=== PATIENT | female | born 1995 | race Caucasian/White ===

== ENCOUNTER → 2016-08-04 | Outpatient (CLI) | payer BC ==
[2016-08-04 20:39] LABS: ALT 18 U/L (9-52); AST 18 U/L (14-36); Alkaline Phosphatase 57 U/L (38-126); Anion Gap 11 mmol/L; Blood Urea Nitrogen 10 mg/dL (7-17); Calcium 9.2 mg/dL (8.4-10.2); Carbon Dioxide 23 mmol/L (22-30); Chloride 108 mmol/L (98-107); Cholesterol 110 mg/dL (<200); Glucose 118 mg/dL (74-99); HDL Cholesterol 46 mg/dL (40-60); Non-African American GFR(MDRD) >60 (>60 ml/min/1.73 sqM); Sodium 142 mmol/L (137-145); Total Bilirubin 0.4 mg/dL (0.2-1.3); Total Protein 6.5 g/dL (6.3-8.2); Triglycerides 111 mg/dL (<150)
[2016-08-04 20:43] LABS: CH 30.4; Luc % (Auto) 1; Neutrophils % (A) 61 %
[2016-08-04 20:47] LABS: Basophils % (A) 0 %; Eosinophils # (A) 0.1 k/uL (0-0.7); Eosinophils % (A) 1 %; HCT 38.5 % (34.0-46.0); HDW 2.25; HGB 12.7 gm/dL (11.4-16.0); Lymphocytes # (A) 2.9 k/uL (1.0-4.8); Lymphocytes % (A) 32 %; MCH 30.4 pg (25.0-35.0); MCHC 32.9 g/dL (31.0-37.0); MCV 92.4 fL (80.0-100.0); Mean Platelet Volume 8.6; Monocytes # (A) 0.4 k/uL (0-1.0); Monocytes % (A) 4 %; Neutrophils # (A) 5.5 k/uL (1.3-7.7); RBC 4.17 m/uL (3.80-5.40); RDW 12.3 % (11.5-15.5); WBC (Perox) 9.75
== END | disposition home or self-care (01) ==
LOC: MMGSC 14:44
PROVIDERS: ATTEND Family Medicine
DX: Z00.00 Encounter for general adult medical examination without abnormal findings (principal)
CPT/HCPCS: 36415; 80053; 80061; 84439; 84443; 85025

== ENCOUNTER 2020-05-25 17:19 | Outpatient (CLI) | payer BC ==
[2020-05-25 18:47] VITALS: BP 123/72; PULSE 73; RESP 18; TEMP 97.3
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
== END 2020-05-25 18:40 | disposition home or self-care (01) ==
LOC: FBPOP 17:19
PROVIDERS: ATTEND Obstetrics & Gynecology
DX: O99.891 Other specified diseases and conditions complicating pregnancy (principal); R52 Pain, unspecified; Z3A.30 30 weeks gestation of pregnancy
CPT/HCPCS: 59025; 82731; 99215

== ENCOUNTER 2020-06-18 16:45 | Outpatient (CLI) | payer BC ==
[2020-06-18 17:38] LABS: Amorphous Sediment,Urine Occasional /hpf; Appearance,Urine Cloudy (Clear); Bacteria,Urine Moderate /hpf; Bilirubin,Urine Negative (Negative); Blood,Urine Negative (Negative); Color,Urine Yellow; Glucose,Urine (UA) Negative (Negative); Ketones,Urine Negative (Negative); Leukocyte Esterase,Urine Moderate (Negative); Mucus,Urine Moderate /hpf; Nitrite,Urine Negative (Negative); PH, Urine 6.5 (5.0-8.0); Protein,Urine 1+ (Negative); RBC,Urine 2 /hpf (0-5); Squamous Epithelial Cell,Urine 3 /hpf (0-4); Urobilinogen,Urine <2.0 mg/dL (<2.0); WBC,Urine 50 /hpf (0-5)
[2020-06-18 18:04] VITALS: BP 112/77; PULSE 74; RESP 16; TEMP 97.1
--- NOTE | 2020-08-06 15:05 | P.MSEPDOC ---
Presenting Problems - Arrival Data Date of Arrival on Unit: 06/18/20 Time of Arrival on Unit: 16:45 Mode of Transport: Ambulatory - Complaint OB-Reason for Admission/Chief Complaint: Pain, Observation/Evaluation Comment: Cramping since Sunday Medical History - Information : 1 Para: 0 Term: 0 : 0 Abortions: Spontaneous or Elective: 0 Number of Living Children: 0 - Gestational Age Gestational Age by ALICIA (wks/days): 33 Weeks and 5 Days Review of Systems - Review of Systems Constitutional: No problems Breast: No problems ENT: No problems Cardiovascular: No problems Respiratory: No problems Gastrointestinal: No problems Genitourinary: No problems Musculoskeletal: No problems Neurological: No problems Skin: No problems Vital Signs - Temperature Temperature: 97.1 F Temperature Source: Temporal Artery Scan - Pulse Right Sitting Brachial Pulse Rate: 74 Pulse Assessment Method: Automatic Cuff - Respirations Respiratory Rate: 16 Oxygen Delivery Method: Room Air O2 Sat by Pulse Oximetry: 100 - Blood Pressure Right Arm Sitting Blood Pressure: 112/77 Blood Pressure Mean: 88 Blood Pressure Source: Automatic Cuff Medical Screen Scoring (Pre) - Cervical Exam Dilation: 0 cm = 0 Membranes: Intact - Uterine Contractions Frequency: N/A Duration: N/A Intensity: N/A - Maternal Vital Signs Maternal Temperature: N/A Maternal Blood Pressure: N/A Signs of Preeclampsia: N/A Maternal Respirations: N/A - Maternal Trauma Maternal Trauma: N/A - Assessment - Baby A Baseline FHR: 135 Heart Rate - NICHD Category: Category I (Normal) = 0 NST: Reactive Position: N/A Station: N/A - Total Score - Baby A Total Score - Baby A: 0 - Total Score - Baby B Total Score - Baby B: 0 - Total Score - Baby C Total Score - Baby C: 0 - Level of Risk - Baby A Level of Risk - Baby A: Low (0-5) - Level of Risk - Baby B Level of Risk - Baby B: Low (0-5) - Level of Risk - Baby C Level of Risk - Baby C: Low (0-5) Physician Notification (Pre) - Physician Notified Physician Notified Date: 06/18/20 Physician Notified Time: 17:45 New Order Received: Yes - Notification Comment Comment: Naima Peña, advsd 33 10/15, c/o cramping since Sunday, more intense today while on feet, better when sitting. Reviewed UA, reactive NST, no activity on TOCO. Phy states will order antibiotic to pts pharmacy, pt to follow up as scheduled. Disposition - Disposition OB Disposition: Discharge to home, Written follow up instructions reviewed Discharge Date: 06/18/20 Discharge Time: 17:56 I agree with the RN Medical Screening Exam: Yes Physician's MSE Comment: Patient was not seen or examined by myself Case reviewed; plan agreed upon as documented in EMR&OBIX.: Yes Diagnosis: RELATED CONDITIONS, UNSPECIFIED, THIRD TRIMESTER
== END 2020-06-18 17:56 | disposition home or self-care (01) ==
LOC: FBPOP 16:45
PROVIDERS: ATTEND Obstetrics & Gynecology Obstetrics
DX: O26.93 Pregnancy related conditions, unspecified, third trimester (principal); Z3A.33 33 weeks gestation of pregnancy
CPT/HCPCS: 59025; 81001; 99213

== ENCOUNTER 2020-07-27 11:34 | Outpatient (CLI) | payer BC ==
[2020-07-27 12:18] VITALS: BP 125/82; PULSE 103; RESP 18; TEMP 97.1
--- NOTE | 2020-08-06 15:39 | P.MSEPDOC ---
Presenting Problems - Arrival Data Date of Arrival on Unit: 07/27/20 Time of Arrival on Unit: 11:34 Mode of Transport: Ambulatory - Complaint OB-Reason for Admission/Chief Complaint: Rule Out SROM, NST Medical History - Information : 1 Para: 0 Term: 0 : 0 Abortions: Spontaneous or Elective: 0 Number of Living Children: 0 - Gestational Age Gestational Age by ALICIA (wks/days): 39 Weeks and 4 Days Review of Systems - Review of Systems Constitutional: No problems Breast: No problems ENT: No problems Cardiovascular: No problems Respiratory: No problems Gastrointestinal: No problems Genitourinary: No problems Musculoskeletal: No problems Neurological: No problems Skin: No problems Vital Signs - Temperature Temperature: 97.1 F Temperature Source: Temporal Artery Scan - Pulse Right Pulse Rate: 103 Pulse Assessment Method: Automatic Cuff - Respirations Respiratory Rate: 18 Oxygen Delivery Method: Room Air - Blood Pressure Right Arm Blood Pressure: 125/82 Blood Pressure Mean: 96 Blood Pressure Source: Automatic Cuff Medical Screen Scoring (Pre) - Cervical Exam Dilation: 1-3 cm = 1 Effacement: More than 50% = 2 Membranes: Intact - Uterine Contractions Frequency: N/A Duration: N/A Intensity: N/A - Maternal Vital Signs Maternal Temperature: N/A Maternal Blood Pressure: N/A Signs of Preeclampsia: N/A Maternal Respirations: N/A - Maternal Trauma Maternal Trauma: N/A - Assessment - Baby A Baseline FHR: 155 Heart Rate - NICHD Category: Category I (Normal) = 0 NST: Reactive Position: N/A Station: N/A - Total Score - Baby A Total Score - Baby A: 3 - Total Score - Baby B Total Score - Baby B: 3 - Total Score - Baby C Total Score - Baby C: 3 - Level of Risk - Baby A Level of Risk - Baby A: Low (0-5) - Level of Risk - Baby B Level of Risk - Baby B: Low (0-5) - Level of Risk - Baby C Level of Risk - Baby C: Low (0-5) Physician Notification (Pre) - Physician Notified Physician Notified Date: 07/27/20 Physician Notified Time: 12:15 New Order Received: Yes (keep apt on 07/27/2020) Medical Screen Scoring (Post) - Cervical Exam Dilation: 1-3 cm = 1 Effacement: More than 50% = 2 Membranes: Intact - Uterine Contractions Frequency: N/A Duration: N/A Intensity: N/A - Maternal Vital Signs Maternal Temperature: N/A Maternal Blood Pressure: N/A Signs of Preeclampsia: N/A Maternal Respirations: N/A - Pain Assessment Pain Location and Character: Generalized Pain Scale Used: Numeric (1 - 10) Pain Intensity: 0 Pain Management Goal: 0 Pain Radiation Location: none Pain Behavior: None Exhibited, Vocalization - Maternal Trauma Maternal Trauma: N/A - Assessment - Baby A Heart Rate: 150 Heart Rate - NICHD Category: Category I (Normal) = 0 NST: Reactive Position: N/A Station: N/A - Total Score Total Score - Baby A: 3 Total Score - Baby B: 3 Total Score - Baby C: 3 - Post Treatment Level of Risk Post Treatment Level of Risk - Baby A: Low (0-5) Post Treatment Level of Risk - Baby B: Low (0-5) Post Treatment Level of Risk - Baby C: Low (0-5) Physician Notification (Post) - Physician Notified Physician Notified Date: 07/27/20 Physician Notified Time: 12:15 Physician/Practitioner Notified:: Casey Spoke With: Casey New Order Received: No Disposition - Disposition OB Disposition: Discharge to home Discharge Date: 07/27/20 Discharge Time: 12:20 I agree with the RN Medical Screening Exam: Yes Physician's MSE Comment: Patient was not seen or examined by myself Case reviewed; plan agreed upon as documented in EMR&OBIX.: Yes Diagnosis: FALSE LABOR AT OR AFTER 37 COMPLETED WEEKS OF GESTATION
== END 2020-07-27 12:20 | disposition home or self-care (01) ==
LOC: FBPOP 11:34
PROVIDERS: ATTEND Obstetrics & Gynecology Obstetrics
DX: O47.1 False labor at or after 37 completed weeks of gestation (principal); Z3A.39 39 weeks gestation of pregnancy
CPT/HCPCS: 59025; 84112; 99213

== ENCOUNTER → 2020-07-27 | Outpatient (CLI) | payer BC ==
--- NOTE | 2020-07-27 11:59 | US ---
EXAMINATION TYPE: US venous doppler duplex LE RT DATE OF EXAM: 07/27/2020 11:27 AM COMPARISON: NONE CLINICAL HISTORY: 24-year-old female M79.661 PAIN IN RT LIMB. Right lower leg pain. 39 weeks pregnan t. No redness. Patient states doctor said leg was swollen. SIDE PERFORMED: Right TECHNIQUE: The lower extremity deep venous system is examined utilizing real time linear array sonog nicci with graded compression, doppler sonography and color-flow sonography. FINDINGS: VESSELS IMAGED: Common Femoral Vein Deep Femoral Vein Greater Saphenous Vein * Femoral Vein Popliteal Vein Small Saphenous Vein * Proximal Calf Veins (* superficial vessels) Right Leg: Negative for DVT IMPRESSION: No evidence for DVT within the right lower extremity imaged from the groin to the upper calf.
== END | disposition home or self-care (01) ==
LOC: RADUSWWP 11:05
PROVIDERS: ATTEND Obstetrics & Gynecology Obstetrics
DX: O26.893 Other specified pregnancy related conditions, third trimester (principal); Z3A.39 39 weeks gestation of pregnancy

== ENCOUNTER 2020-07-29 17:25 | Outpatient (CLI) | payer BC ==
[2020-07-29 20:22] VITALS: BP 119/70; PULSE 89; RESP 16; TEMP 98.4
== END 2020-07-29 19:40 | disposition home or self-care (01) ==
LOC: FBPOP 17:25
PROVIDERS: ATTEND Obstetrics & Gynecology
DX: Z53.9 Procedure and treatment not carried out, unspecified reason (principal)
CPT/HCPCS: 59025; 99213

== ENCOUNTER 2020-07-29 20:45 | Inpatient (IN) | payer BC ==
[~2020-07-29 20:45] MED LIST: ROPIVACAINE 5MG/ML 20ML VIAL ONE; SODIUM CHLORIDE 0.9% 100 ML BAG ONE; fentaNYL (PF) 50 MCG/ML 5 ML AMP ONE
[2020-07-29] MEDS: LACTATED RINGERS 1,000 ML IV SCH ×2 (22:00→22:29)
[2020-07-29] MEDS ORDERED: CARBOPROST TROMETHAMINE 250 MCG/ML 1 ML AMP IM PRN (22:11)
[2020-07-29] MEDS ORDERED: OXYTOCIN 10 UNIT/ML 1 ML VIAL IM PRN (22:11)
[2020-07-29] MEDS ORDERED: LIDOCAINE 0.5% (PF) 5 MG/ML (50 ML SDV) SQ PRN (22:11)
[2020-07-29] MEDS ORDERED: TERBUTALINE 1 MG/ML VIAL SQ PRN (22:11)
[2020-07-29] MEDS ORDERED: METHYLERGONOVINE 0.2 MG/ML 1 ML AMP IM PRN (22:11)
[2020-07-29] MEDS ORDERED: OXYTOCIN 30 UNITS/500 ML NS 30 UNIT in SALINE 1 500ML.BAG IV SCH (22:15)
[2020-07-29 22:25] LABS: Basophils % (A) 0 %; Eosinophils # (A) 0.1 k/uL (0-0.7); Eosinophils % (A) 1 %; HGB 12.5 gm/dL (11.4-16.0); Lymphocytes # (A) 2.4 k/uL (1.0-4.8); Lymphocytes % (A) 18 %; MCH 32.1 pg (25.0-35.0); MCHC 34.7 g/dL (31.0-37.0); MCV 92.3 fL (80.0-100.0); Mean Platelet Volume 9.5; Monocytes # (A) 0.6 k/uL (0-1.0); Monocytes % (A) 5 %; Neutrophils # (A) 9.8 k/uL (1.3-7.7); Neutrophils % (A) 75 %; Platelet Count 186 k/uL (150-450); RDW 13.2 % (11.5-15.5); WBC 13.1 k/uL (3.8-10.6)
[2020-07-30] MEDS ORDERED: ROPIVACAINE 5MG/ML 20ML VIAL ONE (00:55)
[2020-07-30] MEDS ORDERED: SODIUM CHLORIDE 0.9% 100 ML BAG ONE (00:55)
[2020-07-30] MEDS ORDERED: fentaNYL (PF) 50 MCG/ML 5 ML AMP ONE (00:55)
[2020-07-30] MEDS: LACTATED RINGERS 1,000 ML IV SCH ×2 (02:59→10:07)
--- NOTE | 2020-07-30 08:12 | P.HPOB ---
History of Present Illness H&P Date: 07/30/20 Chief Complaint: IUP @ 40 0/7 SROM, labor This is a 24yo that presents to labor and delivery with c/o SROM early this am. she was seen earlier in the evening with complaints of CTX but was sent home after no cervical change was appreciated. Patient had been receiving routine care which has been essentially uncomplicated. Patient does note good movement. On bloodwork patient has a blood type of O neg , rubella status immune, RPR nonreactive, hep Irene surface engine negative, group beta strep culture negative. Review of Systems Constitutional: Denies chills, Denies fatigue, Denies fever Ears, nose, mouth and throat: Denies headache Cardiovascular: Reports edema Respiratory: Denies dyspnea Gastrointestinal: Denies constipation, Denies diarrhea, Denies nausea, Denies vomiting Genitourinary: Reports Past Medical History Past Medical History: No Reported History History of Any Multi-Drug Resistant Organisms: None Reported Past Surgical History: No Surgical Hx Reported Past Anesthesia/Blood Transfusion Reactions: No Reported Reaction Past Psychological History: Anxiety Smoking Status: Never smoker - Past Family History Mother Family Medical History: No Reported History Medications and Allergies Home Medications Medication Instructions Recorded Confirmed Type Sertraline [Zoloft] 100 mg PO DAILY 05/25/20 07/29/20 History Pnv No.95/Ferrous Fum/Folic AC 1 each PO DAILY 06/18/20 07/29/20 History [ Multivitamin Tablet] Allergies Allergy/AdvReac Type Severity Reaction Status Date / Time No Known Allergies Allergy Verified 07/29/20 17:50 Exam Osteopathic Statement: *. No significant issues noted on an osteopathic structural exam other than those noted in the History and Physical/Consult. Vital Signs Temp Pulse Resp BP Pulse Ox 07/29/20 22:10 98.1 F 87 16 123/74 98 Intake and Output 07/29/20 07/30/20 07/30/20 22:59 06:59 14:59 Other: Weight 77.564 kg Targeted physical exam is performed in this date and community support specialist a well-nourished well-developed female in no acute distress, breathing is nonlabored, heart has regular rhythm, abdomen is gravid and appropriate for gestational age, on cervical exam she was recently checked and noted to be 6-7 cm and -1 station. She is maida every 6 minutes, heart tones are noted to be category 1. Results Result Diagrams: 07/29/20 22:21 Abnormal Lab Results - Last 24 Hours (Table) 07/29/20 Range/Units 22:21 WBC 13.1 H (3.8-10.6) k/uL Neutrophils # 9.8 H (1.3-7.7) k/uL Assessment and Plan (1) Term Current Visit: Yes Status: Acute Code(s): Z34.90 - ENCNTR FOR SUPRVSN OF NORMAL , UNSP, UNSP TRIMESTER SNOMED Code(s): 49821624 (2) SROM (spontaneous rupture of membranes) Current Visit: Yes Status: Acute Code(s): JUF9033 - SNOMED Code(s): 387867148 (3) Active labor Current Visit: Yes Status: Acute Code(s): PPV4792 - SNOMED Code(s): 11 5659651 (4) Rh negative status during Current Visit: Yes Status: Acute Code(s): O26.899 - OTH RELATED CONDITIONS, UNSPECIFIED TRIMESTER; Z67.91 - UNSPECIFIED BLOOD TYPE, RH NEGATIVE SNOMED Code(s): 359643838 Plan: This 24-year-old at 40-0/7 weeks presented to labor and delivery with complaints of spontaneous rupture of membranes and contractions. Patient is admitted to labor and delivery and expectant management was ordered overnight. heart tones are noted to be category 1. She is maida every 6 alonso walker, given rupture of membranes will start Pitocin augmentation of labor at this time. Patient currently has an epidural in place. Will anticipate spontaneous vaginal delivery this morning.
[2020-07-30] MEDS ORDERED: BENZOCAINE/MENTHOL SPRAY 1 GM/SPRAY AEROSOL TOPICAL PRN (08:50)
[2020-07-30] MEDS ORDERED: diphenhydrAMINE ELIXIR 25 MG/10 ML CUP PO PRN (08:50)
[2020-07-30] MEDS ORDERED: HYDROCORTISONE 2.5% RECTAL CREAM 30 GM TUBE RECTAL PRN (08:50)
[2020-07-30] MEDS ORDERED: ZOLPIDEM 5 MG TAB PO PRN (08:50)
[2020-07-30] MEDS ORDERED: LANOLIN CREAM 5 GM TUBE TOPICAL PRN (08:50)
[2020-07-30] MEDS ORDERED: diphenhydrAMINE 50 MG/ML 1 ML VIAL IVP PRN ×2 (08:50)
[2020-07-30] MEDS ORDERED: SIMETHICONE 80 MG CHEWABLE PO PRN (08:50)
[2020-07-30] MEDS ORDERED: diphenhydrAMINE 50 MG CAP PO PRN (08:50)
[2020-07-30] MEDS ORDERED: diphenhydrAMINE 25 MG CAP PO PRN (08:50)
--- NOTE | 2020-07-30 08:50 | P.PROBDLV ---
Vaginal Delivery Note - . Vaginal Delivery Note: This is a 24-year-old white female 1 para 0 EDC 07/30/2020 at 40 weeks gestation. Patient presented last night with spontaneous amniorrhexis, meconium-stained fluid. is unremarkable, group B strep cultures negative, blood type O-, rubella status immune. Please see dictated history and physical for details. Oxytocin augmentation was started and titrated. Epidural was placed per the patient's request. She progressed through the first stage of labor was judged to be completely dilated at 0756 hours. Second stage of labor commenced at that time. heart rate was reassuring throughout the first and second stages of labor. Ultimately the perineal body was prepped and draped in usual sterile fashion. Infant's head delivered occiput anterior and she restituted accordingly. There was no nuchal cord noted. The right or anterior shoulder was delivered easily from underneath the pubic symphysis at which time the oropharynx, nasopharynx, and external nares were bulb suctioned on the perineal body. Patient was officially delivered of a liveborn female at 0832 hours. Umbilical cord was doubly clamped and ligated, she was handed to the nurses for evaluation where scores of 8 and 9 at one and 5 minutes respectively were given. The placenta delivered spontaneously, it was inspected and noted to be intact with deeply stained meconium fluid. It was sent to pathology for evaluation for this reason. Time of placental delivery 0836 hours. Oxytocin was then started. The uterus was massaged. Careful inspection of the cervix, vagina, perineum, periurethral, and perirectal areas revealed a small second-degree perineal laceration. This was easily repaired in the usual fashion using 3-0 Rapide for excellent reapproximation. Total estimated blood loss 250 mL's. weighed 6 lbs. 12 oz. or 3060 g. Patient and her are allowed to begin the bonding experience in the LDR.
[2020-07-30] MEDS: IBUPROFEN 600 MG TAB PO PRN (09:47)
[2020-07-30] MEDS: SERTRALINE 100 MG TAB PO SCH (15:52)
[2020-07-30] MEDS ORDERED: Rhogam IMMUNE GLOBULIN 1,500 UNIT/1 ML IM ONE (16:22)
[2020-07-30] MEDS: ACETAMINOPHEN TAB 325 MG TAB PO PRN (16:30)
[2020-07-30] MEDS: SENNOSIDES-DOCUSATE SODIUM 1 EACH TAB PO SCH (20:28)
[2020-07-31 00:27] VITALS: RESP 14
[2020-07-31] MEDS: ACETAMINOPHEN TAB 325 MG TAB PO PRN (02:40)
[2020-07-31 08:02] VITALS: BP 121/71; PULSE 80; TEMP 98
[2020-07-31] MEDS: SENNOSIDES-DOCUSATE SODIUM 1 EACH TAB PO SCH (08:09)
[2020-07-31] MEDS: IBUPROFEN 600 MG TAB PO PRN (08:10)
--- NOTE | 2020-07-31 08:15 | P.DS ---
Providers Date of admission: 07/29/20 20:45 Expected date of discharge: 07/31/20 Attending physician: Madison Peña Primary care physician: Stated None - Discharge Diagnosis(es) (1) Active labor Current Visit: Yes Status: Acute (2) Rh negative status during Current Visit: Yes Status: Acute (3) SROM (spontaneous rupture of membranes) Current Visit: Yes Status: Acute (4) Term Current Visit: Yes Status: Acute (5) Meconium in amniotic fluid Current Visit: Yes Status: Acute (6) Perineal laceration with delivery, second degree Current Visit: Yes Status: Acute (7) Normal spontaneous vaginal delivery Current Visit: Yes Status: Acute Hospital Course: This is a 24-year-old 1 para 1 woman who presented at 40 weeks gestation with spontaneous rupture of membranes. She was admitted and underwent Pitocin induction of labor. She received an epidural anesthetic. She went on to deliver a liveborn female over second-degree perineal laceration. Meconium staining of the fluid and placenta were appreciated the time of delivery. weight 6 lbs. 12 oz. and had Apgars of 8 at 1 minute and 9 at 5 minutes. The patient's course was unremarkable. By day #1 she was ambulating and voiding without difficulty, breast-feeding successfully, her lochia was minimal and her vital signs were stable. She was therefore discharged home with routine instructions for care and follow-up. Of note she does have a history of depression incident and is on sertraline 100 mg daily. She works regularly with a counselor. She is given specific instructions regarding signs or symptoms of depression. Patient Condition at Discharge: Good Plan - Discharge Summary New Discharge Prescriptions: No Action Sertraline [Zoloft] 100 mg PO DAILY Pnv No.95/Ferrous Fum/Folic AC [ Multivitamin Tablet] 1 each PO DAILY Discharge Medication List Sertraline [Zoloft] 100 mg PO DAILY 05/25/20 [History] Pnv No.95/Ferrous Fum/Folic AC [ Multivitamin Tablet] 1 each PO DAILY 06/18/20 [History] Follow up Appointment(s)/Referral(s): Madison Peña DO [Doctor of Osteopathic Medicine] - 4 Weeks Activity/Diet/Wound Care/Special Instructions: Follow-up in the office in 6 weeks . Call with any concerning signs or symptoms including heavy vaginal bleeding, severe abdominal pain, fever greater than 101, swelling or redness of the lower extremities, foul vaginal discharge, or signs of depression. Nothing in the vagina for 6 weeks after delivery, specifically no intercourse.
[2020-07-31] MEDS: SERTRALINE 100 MG TAB PO SCH (10:20)
== END 2020-07-31 11:40 | disposition home or self-care (01) | DRG 806 ==
LOC: 4FBP 20:45
PROVIDERS: ADMIT Obstetrics & Gynecology; ATTEND Obstetrics & Gynecology Obstetrics
PROC: 3E0234Z Introduction of Serum, Toxoid and Vaccine into Muscle, Percutaneous Approach (ICD-10-PCS; principal; 2020-07-30)
PROC: 10E0XZZ Delivery of Products of Conception, External Approach (ICD-10-PCS; principal; 2020-07-30)
PROC: 0KQM0ZZ Repair Perineum Muscle, Open Approach (ICD-10-PCS; principal; 2020-07-30)
PROC: 00HU33Z Insertion of Infusion Device into Spinal Canal, Percutaneous Approach (ICD-10-PCS; 2020-07-30)
PROC: 3E0R3BZ Introduction of Anesthetic Agent into Spinal Canal, Percutaneous Approach (ICD-10-PCS; 2020-07-30)
DX: O26.893 Other specified pregnancy related conditions, third trimester (principal); O33.0 Maternal care for disproportion due to deformity of maternal pelvic bones; Z37.0 Single live birth; O70.1 Second degree perineal laceration during delivery; M41.9 Scoliosis, unspecified; O99.344 Other mental disorders complicating childbirth; O77.0 Labor and delivery complicated by meconium in amniotic fluid; Z3A.40 40 weeks gestation of pregnancy; F32.9 Major depressive disorder, single episode, unspecified; F41.9 Anxiety disorder, unspecified; Z67.41 Type O blood, Rh negative; Z79.899 Other long term (current) drug therapy
CPT/HCPCS: 85025; 85461; 86850; 86900; 86901

== ENCOUNTER 2021-09-10 10:02 | Outpatient (CLI) | payer BC ==
[2021-09-10 10:16] VITALS: BP 120/69; PULSE 80; RESP 14; TEMP 96.4
--- NOTE | 2021-10-15 11:50 | P.MSEPDOC ---
Presenting Problems - Arrival Data Date of Arrival on Unit: 09/10/21 Time of Arrival on Unit: 10:00 Mode of Transport: Ambulatory - Complaint OB-Reason for Admission/Chief Complaint: Rule Out PROM Medical History - Information : 2 Para: 1 Term: 1 : 0 Abortions: Spontaneous or Elective: 0 Number of Living Children: 1 - Gestational Age Gestational Age by ALICIA (wks/days): 24 Weeks and 4 Days Review of Systems - Review of Systems Constitutional: No problems Breast: No problems ENT: No problems Cardiovascular: No problems Respiratory: No problems Gastrointestinal: No problems Genitourinary: No problems Musculoskeletal: No problems Neurological: No problems Skin: No problems Vital Signs - Temperature Temperature: 96.4 F Temperature Source: Temporal Artery Scan - Pulse Right Brachial Pulse Rate: 80 Pulse Assessment Method: Automatic Cuff - Respirations Respiratory Rate: 14 Oxygen Delivery Method: Room Air - Blood Pressure Right Arm Blood Pressure: 120/69 Blood Pressure Mean: 86 Blood Pressure Source: Automatic Cuff Physician Notification - Physician Notified Physician Notified Date: 09/10/21 Physician Notified Time: 10:30 Physician: Mark Alvarez New Order Received: No Maternal Triage Index - Maternal Triage Index Presenting for scheduled procedure w/no complaint: No - Stat/Priority 1 Stat Priority 1: No - Urgent/Priority 2 Urgent Priority 2: Yes Provider Notified: Mark Alvarez Provider Notified Time: 10:30 Criteria Met for Priority 2: 24 weeks C/O leaking Disposition - Disposition OB Disposition: Discharge to home Discharge Date: 09/10/21 Discharge Time: 10:49 I agree with the RN Medical Screening Exam: Yes Physician's MSE Comment: I have neither seen nor examined the patient. Case reviewed; plan agreed upon as documented in EMR&OBIX.: Yes Diagnosis: RELATED CONDITIONS, UNSPECIFIED, SECOND TRIMESTER
== END 2021-09-10 10:49 | disposition home or self-care (01) ==
LOC: FBPOP 10:02
PROVIDERS: ATTEND Obstetrics & Gynecology
DX: Z03.79 Encounter for other suspected maternal and fetal conditions ruled out (principal)
CPT/HCPCS: 84112; 99213

== ENCOUNTER → 2021-11-02 | Outpatient (CLI) | payer BC ==
[2021-11-02 13:48] VITALS: BP 117/68; PULSE 106; RESP 18; TEMP 97.5
--- NOTE | 2021-12-04 15:06 | P.MSEPDOC ---
Presenting Problems - Arrival Data Date of Arrival on Unit: 11/02/21 Time of Arrival on Unit: 12:32 Mode of Transport: Ambulatory - Complaint OB-Reason for Admission/Chief Complaint: Other Comment: sinus/head pressure, sore throat, and SOB. Medical History - Information : 2 Para: 1 Term: 1 : 0 Abortions: Spontaneous or Elective: 0 Number of Living Children: 1 - Gestational Age Gestational Age by ALICIA (wks/days): 32 Weeks and 1 Days Review of Systems - Review of Systems Constitutional: No problems Breast: No problems ENT: No problems Cardiovascular: No problems Respiratory: No problems Gastrointestinal: No problems Genitourinary: No problems Musculoskeletal: No problems Neurological: No problems Skin: No problems Vital Signs - Temperature Temperature: 97.5 F Temperature Source: Temporal Artery Scan - Pulse Right Pulse Rate: 106 Pulse Assessment Method: Pulse Oximetry - Respirations Respiratory Rate: 18 Oxygen Delivery Method: Room Air O2 Sat by Pulse Oximetry: 98 - Blood Pressure Right Arm Blood Pressure: 117/68 Blood Pressure Mean: 84 Blood Pressure Source: Automatic Cuff Medical Screen Scoring - Assessment - Baby A Baseline FHR: 150 Heart Rate - NICHD Category: Category I (Normal) NST: Reactive Physician Notification - Physician Notified Physician Notified Date: 11/02/21 Physician Notified Time: 13:20 Physician: Madison Peña New Order Received: Yes (Covid swab) Maternal Triage Index - Maternal Triage Index Presenting for scheduled procedure w/no complaint: No - Stat/Priority 1 Stat Priority 1: No - Urgent/Priority 2 Urgent Priority 2: No - Prompt/Priority 3 Prompt Priority 3: No - Non-Urgent/Priority 4 Non-Urgent Priority 4: Yes Criteria Met for Priority 4: sinus/head pressure,sore throat, SOB. Disposition - Disposition OB Disposition: Triage Discharge Date: 11/02/21 Discharge Time: 14:30 I agree with the RN Medical Screening Exam: Yes Case reviewed; plan agreed upon as documented in EMR&OBIX.: Yes Diagnosis: RELATED CONDITIONS, UNSPECIFIED, SECOND TRIMESTER
== END ==
LOC: FBPOP 12:32
PROVIDERS: ATTEND Obstetrics & Gynecology Obstetrics
DX: O99.513 Diseases of the respiratory system complicating pregnancy, third trimester (principal); J02.9 Acute pharyngitis, unspecified; Z3A.32 32 weeks gestation of pregnancy
CPT/HCPCS: 59025; 87635; 99213

== ENCOUNTER 2021-12-15 00:38 | Outpatient (CLI) | payer BC ==
[2021-12-15] MEDS ORDERED: LACTATED RINGERS 1,000 ML IV SCH (01:15)
[2021-12-15 01:59] VITALS: BP 107/62; PULSE 90; RESP 18; TEMP 97.9
--- NOTE | 2021-12-22 07:47 | P.MSEPDOC ---
Presenting Problems - Arrival Data Date of Arrival on Unit: 12/15/21 Time of Arrival on Unit: 00:38 Mode of Transport: Ambulatory - Complaint OB-Reason for Admission/Chief Complaint: Acute Nausea/Vomiting, Pain Comment: R scapula pain Medical History - Information : 2 Para: 1 Term: 1 : 0 Abortions: Spontaneous or Elective: 0 Number of Living Children: 1 - Gestational Age Gestational Age by ALICIA (wks/days): 38 Weeks and 2 Days Review of Systems - Review of Systems Constitutional: No problems Breast: No problems ENT: No problems Cardiovascular: No problems Respiratory: No problems Gastrointestinal: No problems Genitourinary: No problems Musculoskeletal: No problems Neurological: No problems Skin: No problems Vital Signs - Temperature Temperature: 97.9 F Temperature Source: Oral - Pulse Right Pulse Rate: 90 Pulse Assessment Method: Palpation - Respirations Respiratory Rate: 18 Oxygen Delivery Method: Room Air O2 Sat by Pulse Oximetry: 98 - Blood Pressure Right Arm Blood Pressure: 107/62 Blood Pressure Mean: 77 Blood Pressure Source: Automatic Cuff Medical Screen Scoring - Cervical Exam Dilation (cm): 3 Effacement (%): 50 Station: -2 Membranes: Intact - Uterine Contractions Intensity: Mild Resting: Soft to palpation - Assessment - Baby A Baseline FHR: 130 Heart Rate - NICHD Category: Category I (Normal) NST: Reactive Physician Notification - Physician Notified Physician Notified Date: 12/15/21 Physician Notified Time: 01:45 Physician: Aimee Starr Order Received: Yes - Notification Comment Comment: 11/15/21 @ 0114: RN reported to Dr. Starr maternal/ status, RN gave pt button to push when. she was feeling her back pain and it is correlating with some cxns on the monitor,. cervical exam 3/50%/-2, pt remains nauseated. RN to recheck pt's cervix in an hour,. administer 1L bolus Lactated Ringers. 11/15/21 @ 0145: RN reported to Dr. Starr maternal/ status. Pt's cxns are spacing out, no. longer as nauseated, pain is more tolerable. Per Dr. Starr, if pt's cervix has not made. change, she may DC home with her previously scheduled apt with Dr. Peña. Pt states she. does have a chiropractor apt in the morning as well, that Dr. Starr states to go to,. also educate pt to apply heat, rest, and take acetaminophen PRN for pain. Maternal Triage Index - Maternal Triage Index Presenting for scheduled procedure w/no complaint: No - Stat/Priority 1 Stat Priority 1: No - Urgent/Priority 2 Urgent Priority 2: No - Prompt/Priority 3 Prompt Priority 3: No - Non-Urgent/Priority 4 Non-Urgent Priority 4: Yes Criteria Met for Priority 4: R scapula pain; acute nausea/vomiting Disposition - Disposition OB Disposition: Physician follow up in office, Discharge to home Discharge Date: 12/15/21 Discharge Time: 02:15 I agree with the RN Medical Screening Exam: Yes Case reviewed; plan agreed upon as documented in EMR&OBIX.: Yes Diagnosis: LATE VOMITING OF
== END 2021-12-15 02:15 | disposition home or self-care (01) ==
LOC: FBPOP 00:38
PROVIDERS: ATTEND Obstetrics & Gynecology
DX: O21.2 Late vomiting of pregnancy (principal); Z3A.38 38 weeks gestation of pregnancy
CPT/HCPCS: 59025; 96360; 99213

== ENCOUNTER 2021-12-19 11:55 | Outpatient (CLI) | payer BC ==
[2021-12-19] MEDS ORDERED: LACTATED RINGERS 1,000 ML IV ONE (12:45)
[2021-12-19 13:53] VITALS: BP 117/68; PULSE 113; RESP 18; TEMP 97.5
--- NOTE | 2021-12-30 09:53 | P.MSEPDOC ---
Presenting Problems - Arrival Data Date of Arrival on Unit: 12/19/21 Time of Arrival on Unit: 11:55 Mode of Transport: Ambulatory - Complaint OB-Reason for Admission/Chief Complaint: Rule Out SROM Comment: concerns for possible SROM at 0400 this morning Medical History - Information : 2 Para: 1 Term: 1 : 0 Abortions: Spontaneous or Elective: 0 Number of Living Children: 1 - Gestational Age Gestational Age by ALICIA (wks/days): 38 Weeks and 6 Days Review of Systems - Review of Systems Constitutional: No problems Breast: No problems ENT: No problems Cardiovascular: No problems Respiratory: No problems Gastrointestinal: No problems Genitourinary: No problems Musculoskeletal: No problems Neurological: No problems Skin: No problems Vital Signs - Temperature Temperature: 97.5 F Temperature Source: Temporal Artery Scan - Pulse Right Pulse Oximetery Pulse Rate: 113 Pulse Assessment Method: Pulse Oximetry - Respirations Respiratory Rate: 18 Oxygen Delivery Method: Room Air O2 Sat by Pulse Oximetry: 97 - Blood Pressure Right Arm Blood Pressure: 117/68 Blood Pressure Mean: 84 Blood Pressure Source: Automatic Cuff Medical Screen Scoring - Cervical Exam Dilation (cm): 4 Effacement (%): 50 Station: -2 Membranes: Intact - Uterine Contractions Intensity: Mild Resting: Soft to palpation - Assessment - Baby A Baseline FHR: 130 Heart Rate - NICHD Category: Category I (Normal) NST: Reactive Physician Notification - Physician Notified Physician Notified Date: 12/19/21 Physician Notified Time: 12:43 Physician: Madison Peña New Order Received: Yes - Notification Comment Comment: order for IV fluid bolus and order to recheck cervix after one hour. Maternal Triage Index - Maternal Triage Index Presenting for scheduled procedure w/no complaint: No - Stat/Priority 1 Stat Priority 1: No - Urgent/Priority 2 Urgent Priority 2: No - Prompt/Priority 3 Prompt Priority 3: No - Non-Urgent/Priority 4 Non-Urgent Priority 4: Yes Criteria Met for Priority 4: rule out SROM at 38 6/7 weeks gestation. Disposition - Disposition OB Disposition: Discharge to home Discharge Date: 12/19/21 Discharge Time: 13:43 I agree with the RN Medical Screening Exam: Yes Case reviewed; plan agreed upon as documented in EMR&OBIX.: Yes Diagnosis: FALSE LABOR AT OR AFTER 37 COMPLETED WEEKS OF GESTATION
== END 2021-12-19 13:43 | disposition home or self-care (01) ==
LOC: FBPOP 11:55
PROVIDERS: ATTEND Obstetrics & Gynecology Obstetrics
DX: O47.1 False labor at or after 37 completed weeks of gestation (principal); Z3A.38 38 weeks gestation of pregnancy
CPT/HCPCS: 59025; 84112; 99213

== ENCOUNTER 2021-12-21 06:05 | Inpatient (IN) | payer BC ==
[2021-12-21] MEDS ORDERED: TERBUTALINE 1 MG/ML VIAL SQ PRN (06:45)
[2021-12-21] MEDS ORDERED: LIDOCAINE 0.5% (PF) 5 MG/ML (50 ML SDV) SQ PRN (06:45)
[2021-12-21] MEDS ORDERED: OXYTOCIN 30 UNITS/500 ML NS 30 UNIT in SALINE 1 500ML.BAG IV SCH ×2 (06:45→14:15)
[2021-12-21] MEDS ORDERED: CARBOPROST TROMETHAMINE 250 MCG/ML 1 ML AMP IM PRN (06:45)
[2021-12-21] MEDS ORDERED: METHYLERGONOVINE 0.2 MG/ML 1 ML AMP IM PRN (06:45)
[2021-12-21] MEDS ORDERED: OXYTOCIN 10 UNIT/ML 1 ML VIAL IM PRN (06:45)
[2021-12-21] MEDS: LACTATED RINGERS 1,000 ML IV SCH ×2 (06:56→19:37)
[2021-12-21 07:20] LABS: Basophils # (A) 0.1 k/uL (0-0.2); Basophils % (A) 1 %; Eosinophils # (A) 0.1 k/uL (0-0.7); Eosinophils % (A) 1 %; HCT 32.8 % (34.0-46.0); Lymphocytes # (A) 2.4 k/uL (1.0-4.8); Lymphocytes % (A) 23 %; MCH 29.6 pg (25.0-35.0); MCHC 33.4 g/dL (31.0-37.0); MCV 88.7 fL (80.0-100.0); Mean Platelet Volume 9.6; Monocytes # (A) 0.6 k/uL (0-1.0); Monocytes % (A) 5 %; Neutrophils % (A) 68 %; Platelet Count 202 k/uL (150-450); RDW 13.5 % (11.5-15.5); WBC 10.3 k/uL (3.8-10.6)
[2021-12-21] MEDS ORDERED: ROPIVACAINE 100 MG, fentaNYL (PF). 200 MCG in SODIUM CHLORIDE 0.9% 76 ML EPIDURAL ONE (10:19)
[2021-12-21] MEDS ORDERED: BENZOCAINE/MENTHOL SPRAY 1 GM/SPRAY AEROSOL TOPICAL PRN (14:05)
[2021-12-21] MEDS ORDERED: ZOLPIDEM 5 MG TAB PO PRN (14:05)
[2021-12-21] MEDS ORDERED: diphenhydrAMINE 25 MG CAP PO PRN (14:05)
[2021-12-21] MEDS ORDERED: LANOLIN CREAM 5 GM TUBE TOPICAL PRN (14:05)
[2021-12-21] MEDS ORDERED: diphenhydrAMINE 50 MG/ML 1 ML VIAL IVP PRN ×2 (14:05)
[2021-12-21] MEDS ORDERED: HYDROCORTISONE 2.5% RECTAL CREAM 30 GM TUBE RECTAL PRN (14:05)
[2021-12-21] MEDS ORDERED: diphenhydrAMINE 50 MG CAP PO PRN (14:05)
[2021-12-21] MEDS ORDERED: SIMETHICONE 80 MG CHEWABLE PO PRN (14:05)
--- NOTE | 2021-12-21 14:08 | P.PROBDLV ---
Vaginal Delivery Note - . Vaginal Delivery Note: 26-year-old 2 para 1 at 39 and one sevenths weeks presented to labor and delivery this morning for induction of labor. Patient was admitted to labor and delivery and Pitocin induction of labor was begun, amniotomy was performed and copious clear fluid was obtained. Patient progressed through labor eventually becoming uncomfortable and requesting epidural placement. Epidural was placed without difficulty by the anesthesia department. Patient progressed to complete began pushing and had a normal spontaneous vaginal delivery of a viable male infant at 1342, weight of 8 lbs. 13 oz., Apgars of 9 and 9 at one and 5 minutes respectively. After two-minute delayed the umbilical cord was doubly clamped and cut and the placenta was delivered spontaneously intact with three-vessel cord being noted. The uterus is noted to be firm and below the umbilicus at this time. On inspection the patient's vaginal vault a first 3 vaginal laceration along with a right labial laceration were appreciated. The right labial laceration was injected with lidocaine and repaired in usual fashion with 4-0 chromic. The first-degree vaginal laceration was injected with lidocaine and repaired in the usual fashion with 3-0 Rapide. Hemostasis and adequate closure was noted after completion. The uterus was once again noted to be firm and below the umbilicus. S May blood loss 100 mL. Patient and infant tolerated delivery well and are resting comfortably.
[2021-12-21 14:18] VITALS: RESP 16
[2021-12-21] MEDS: IBUPROFEN 600 MG TAB PO SCH ×2 (16:25→21:52)
[2021-12-21] MEDS: ACETAMINOPHEN TAB 325 MG TAB PO PRN (19:50)
[2021-12-21] MEDS: SENNOSIDES-DOCUSATE SODIUM 1 EACH TAB PO SCH (19:51)
[2021-12-22] MEDS: IBUPROFEN 600 MG TAB PO SCH ×3 (04:17→07:39)
[2021-12-22] MEDS: ACETAMINOPHEN TAB 325 MG TAB PO PRN ×2 (04:31→12:24)
[2021-12-22] MEDS: SENNOSIDES-DOCUSATE SODIUM 1 EACH TAB PO SCH (07:39)
--- NOTE | 2021-12-22 08:34 | P.DS ---
Providers Date of admission: 12/21/21 06:05 Expected date of discharge: 12/22/21 Attending physician: Madison Peña Primary care physician: Stated None - Discharge Diagnosis(es) (1) Term Current Visit: No Status: Acute (2) Obstetric vaginal laceration with first degree perineal laceration Current Visit: Yes Status: Acute (3) Normal spontaneous vaginal delivery Current Visit: No Status: Acute Hospital Course: This is a 18-year-old G2 now P2 status post normal spontaneous vaginal delivery. Patient presented to labor and delivery on 12/21 for induction of labor. Patient was admitted to labor and delivery and Pitocin induction of labor was begun. Patient underwent amniotomy and copious clear fluid was obtained. Patient progressed through labor eventually becoming uncomfortable and requesting epidural placement. Epidural was placed without difficulty by the anesthesia department. Patient progressed to complete had a normal spontaneous vaginal delivery of a viable male infant at 1342, weight of 8 lbs. 13 oz. Patient did sustain a first-degree vaginal laceration with a right labial laceration. Lacerations were repaired in usual fashion and hemostasis was noted after repair. Patient has done well . On this day #1 she is ambulating and voiding without difficulty. She is tolerating a regular diet without nausea or vomiting. States her pain is well-controlled. She is breast- feeding without difficulty. She would like discharge home at 24 hours if infant is discharged along with her. Patient Condition at Discharge: Good Plan - Discharge Summary New Discharge Prescriptions: No Action Sertraline [Zoloft] 100 mg PO DAILY Pnv No.95/Ferrous Fum/Folic AC [ Multivitamin Tablet] 1 each PO DAILY Discharge Medication List Sertraline [Zoloft] 100 mg PO DAILY 05/25/20 [History] Pnv No.95/Ferrous Fum/Folic AC [ Multivitamin Tablet] 1 each PO DAILY 06/18/20 [History] Follow up Appointment(s)/Referral(s): Madison Peña DO [Doctor of Osteopathic Medicine] - 4 Weeks Patient Instructions/Handouts: Vaginal Delivery (DC), Vaginal Delivery (GEN) Discharge Disposition: HOME SELF-CARE
--- NOTE | 2021-12-22 08:45 | P.HPOB ---
History of Present Illness H&P Date: 12/21/21 Chief Complaint: IUP at 39 and one sevenths weeks This is a 26-year-old at 39 and one sevenths weeks that presents to labor and delivery for induction of labor. Patient was seen in the office yesterday noted to be 4+ centimeters. Patient elected induction of labor. Patient has been receiving routine care which has been essentially uncomplicated. Patient notes good movement denies vaginal bleeding or loss of fluid. Review of Systems Constitutional: Denies chills, Denies fatigue, Denies fever Ears, nose, mouth and throat: Denies headache Cardiovascular: Reports leg edema Respiratory: Denies dyspnea Gastrointestinal: Denies constipation, Denies diarrhea, Denies nausea, Denies vomiting Genitourinary: Reports Past Medical History Past Medical History: No Reported History History of Any Multi-Drug Resistant Organisms: None Reported Past Surgical History: No Surgical Hx Reported Past Anesthesia/Blood Transfusion Reactions: No Reported Reaction Past Psychological History: Anxiety, Depression Smoking Status: Never smoker - Past Family History Mother Family Medical History: No Reported History Medications and Allergies Home Medications Medication Instructions Recorded Confirmed Type Sertraline [Zoloft] 100 mg PO DAILY 05/25/20 12/21/21 History Pnv No.95/Ferrous Fum/Folic AC 1 each PO DAILY 06/18/20 12/19/21 History [ Multivitamin Tablet] Allergies Allergy/AdvReac Type Severity Reaction Status Date / Time No Known Allergies Allergy Verified 12/21/21 06:44 Exam Osteopathic Statement: *. No significant issues noted on an osteopathic structural exam other than those noted in the History and Physical/Consult. 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 heart tones noted be category 1 and she is maida every 3 minutes. Results Result Diagrams: 12/21/21 06:50 Abnormal Lab Results - Last 24 Hours (Table) 12/21/21 Range/Units 06:50 RBC 3.70 L (3.80-5.40) m/uL Hgb 11.0 L (11.4-16.0) gm/dL Hct 32.8 L (34.0-46.0) % Assessment and Plan (1) Term Current Visit: No Status: Acute Code(s): Z34.90 - ENCNTR FOR SUPRVSN OF NORMAL , UNSP, UNSP TRIMESTER SNOMED Code(s): 03368723 Plan: 26-year-old at 39 one sevenths weeks that presents for induction of labor. Patient is admitted to labor and delivery and Pitocin induction of labor was begun. Amniotomy was performed and clear fluid was obtained. Patient is offered epidural which she states she would like. Anesthesia will be notified. Anticipate spontaneous vaginal delivery
[2021-12-22 09:13] VITALS: BP 103/71; PULSE 100; TEMP 97.4
== END 2021-12-22 14:30 | disposition home or self-care (01) | DRG 807 ==
LOC: 4FBP 06:05
PROVIDERS: ADMIT Obstetrics & Gynecology Obstetrics; ATTEND Obstetrics & Gynecology Obstetrics
PROC: 10E0XZZ Delivery of Products of Conception, External Approach (ICD-10-PCS; principal; 2021-12-21)
PROC: 10907ZC Drainage of Amniotic Fluid, Therapeutic from Products of Conception, Via Natural or Artificial Opening (ICD-10-PCS; 2021-12-21)
PROC: 0HQ9XZZ Repair Perineum Skin, External Approach (ICD-10-PCS; 2021-12-21)
PROC: 0UQMXZZ Repair Vulva, External Approach (ICD-10-PCS; 2021-12-21)
PROC: 3E033VJ Introduction of Other Hormone into Peripheral Vein, Percutaneous Approach (ICD-10-PCS; 2021-12-21)
PROC: 4A0HXCZ Measurement of Products of Conception, Cardiac Rate, External Approach (ICD-10-PCS; 2021-12-21)
DX: O99.344 Other mental disorders complicating childbirth (principal); Z37.0 Single live birth; O70.0 First degree perineal laceration during delivery; F32.A Depression, unspecified; F41.9 Anxiety disorder, unspecified; Z3A.39 39 weeks gestation of pregnancy; Z79.899 Other long term (current) drug therapy
CPT/HCPCS: 85025; 86850; 86900; 86901

== ENCOUNTER 2024-04-14 06:05 | Inpatient (IN) | payer BC ==
[2024-04-14] MEDS ORDERED: LIDOCAINE 0.5% (PF) 5 MG/ML (50 ML SDV) SQ PRN (06:14)
[2024-04-14] MEDS ORDERED: METHYLERGONOVINE 0.2 MG/ML 1 ML AMP IM PRN (06:14)
[2024-04-14] MEDS ORDERED: TERBUTALINE 1 MG/ML VIAL SQ PRN (06:14)
[2024-04-14] MEDS ORDERED: miSOPROStoL 200 MCG TAB PO PRN (06:14)
[2024-04-14] MEDS ORDERED: OXYTOCIN 10 UNIT/ML 1 ML VIAL IM PRN (06:14)
[2024-04-14] MEDS ORDERED: CARBOPROST TROMETHAMINE 250 MCG/ML 1 ML AMP IM PRN (06:14)
[2024-04-14] MEDS ORDERED: miSOPROStoL 200 MCG TAB RECTAL PRN (06:14)
[2024-04-14] MEDS ORDERED: TRANEXAMIC 1,000 MG/100ML-NACL 1,000 MG in EMPTY BAG 1 BAG IV PRN (06:14)
[2024-04-14] MEDS ORDERED: OXYTOCIN 30 UNITS/500 ML NS 30 UNIT in SALINE 1 500ML.BAG IV SCH (06:15)
[2024-04-14] MEDS: LACTATED RINGERS 1,000 ML IV SCH ×2 (06:38→22:14)
[2024-04-14] MEDS: OXYTOCIN 30 UNITS/500 ML NS 30 UNIT in SALINE 1 500ML.BAG IV SCH (06:40)
[2024-04-14 06:57] LABS: Basophils % (A) 0 %; Eosinophils # (A) 0.1 k/uL (0-0.7); Eosinophils % (A) 1 %; HCT 33.1 % (34.0-46.0); HGB 10.8 gm/dL (11.4-16.0); Lymphocytes # (A) 2.2 k/uL (1.0-4.8); Lymphocytes % (A) 22 %; MCH 29.4 pg (25.0-35.0); MCHC 32.7 g/dL (31.0-37.0); MCV 89.9 fL (80.0-100.0); Mean Platelet Volume 9.3; Monocytes # (A) 0.6 k/uL (0-1.0); Monocytes % (A) 6 %; Neutrophils # (A) 6.9 k/uL (1.3-7.7); Neutrophils % (A) 70 %; Platelet Count 178 k/uL (150-450); RBC 3.68 m/uL (3.80-5.40); RDW 13.2 % (11.5-15.5)
[2024-04-14] MEDS ORDERED: SODIUM CHLORIDE 0.9% 250 ML BAG ONE (12:25)
[2024-04-14] MEDS ORDERED: fentaNYL (PF) 50 MCG/ML 5 ML AMP ONE (12:25)
[2024-04-14] MEDS ORDERED: ROPIVACAINE 5 MG/ML 30 ML VIAL ONE (12:25)
--- NOTE | 2024-04-14 16:33 | P.HPOB ---
History of Present Illness H&P Date: 04/14/24 Chief Complaint: IUP at 39-0/7 weeks This is a 28-year-old 3 para 2-0-0-2 that presented to labor and delivery at 39-0/7 weeks for scheduled induction of labor. Patient has been receiving routine care which been essentially uncomplicated. Patient notes good movement denies contractions vaginal bleeding or loss of fluid. On blood work this patient is a blood wiped of O-, rubella status immune, hepatitis B surface engine negative, HIV negative, RPR is nonreactive, group B strep culture is negative. Review of Systems Constitutional: Denies chills, Denies fatigue, Denies fever Ears, nose, mouth and throat: Denies headache Cardiovascular: Reports leg edema Respiratory: Denies dyspnea Gastrointestinal: Denies constipation, Denies diarrhea, Denies nausea, Denies vomiting Genitourinary: Reports Past Medical History Past Medical History: No Reported History History of Any Multi-Drug Resistant Organisms: None Reported Past Surgical History: No Surgical Hx Reported Past Anesthesia/Blood Transfusion Reactions: No Reported Reaction Past Psychological History: Anxiety, Depression Smoking Status: Never smoker - Past Family History Mother Family Medical History: No Reported History Medications and Allergies Home Medications Medication Instructions Recorded Confirmed Type Sertraline [Zoloft] 100 mg PO DAILY 05/25/20 12/21/21 History Pnv No.95/Ferrous Fum/Folic AC 1 each PO DAILY 06/18/20 12/19/21 History [ Multivitamin Tablet] Aspirin 04/14/24 History Allergies Allergy/AdvReac Type Severity Reaction Status Date / Time cephalexin [From Keflex] Allergy Rapid Verified 04/14/24 06:12 Heart Rate Exam Osteopathic Statement: *. No significant issues noted on an osteopathic structural exam other than those noted in the History and Physical/Consult. Intake and Output 04/14/24 04/14/24 04/14/24 06:59 14:59 22:59 Other: Weight 84.368 kg Targeted physical exam is performed this date General Is well-nourished well- developed female in no acute distress, breathing is noted to be nonlabored, heart has a regular rate and rhythm, abdomen is gravid and appropriate for gestational age, on cervical exam she is 2/50/-2 station amniotomy is performed and clear fluid was obtained. heart tones noted be category 1 and she is maida every 4 minutes. Results Result Diagrams: 04/14/24 06:30 Abnormal Lab Results - Last 24 Hours (Table) 04/14/24 Range/Units 06:30 RBC 3.68 L (3.80-5.40) m/uL Hgb 10.8 L (11.4-16.0) gm/dL Hct 33.1 L (34.0-46.0) % Assessment and Plan (1) Rh negative status during Current Visit: No Status: Acute Code(s): O26.899 - OTH RELATED CONDITIONS, UNSPECIFIED TRIMESTER; Z67.91 - UNSPECIFIED BLOOD TYPE, RH NEGATIVE SNOMED Code(s): 053110612 (2) Term Current Visit: No Status: Acute Code(s): Z34.90 - ENCNTR FOR SUPRVSN OF NORMAL , UNSP, UNSP TRIMESTER SNOMED Code(s): 90964540 Plan: 28-year-old G3, P2 at 39-0/7 weeks that presents for induction of labor. Patient is admitted to labor and delivery and Pitocin induction of labor is begun per hospital protocol. Patient is counseled on options for analgesia including Nubain, nitrous, epidural. Patient does desire epidural and a nesthesia will be notified when appropriate. Anticipate spontaneous vaginal delivery later today.
[2024-04-14] MEDS ORDERED: diphenhydrAMINE 50 MG CAP PO PRN (16:34)
[2024-04-14] MEDS ORDERED: diphenhydrAMINE 50 MG/ML 1 ML VIAL IVP PRN ×2 (16:34)
[2024-04-14] MEDS ORDERED: HYDROCORTISONE 2.5% RECTAL CREAM 30 GM TUBE RECTAL PRN (16:34)
[2024-04-14] MEDS ORDERED: diphenhydrAMINE 25 MG CAP PO PRN (16:34)
[2024-04-14] MEDS ORDERED: ZOLPIDEM 5 MG TAB PO PRN (16:34)
[2024-04-14] MEDS ORDERED: LANOLIN CREAM 1 GM TUBE TOPICAL PRN (16:34)
[2024-04-14] MEDS ORDERED: SIMETHICONE 80 MG CHEWABLE PO PRN (16:34)
--- NOTE | 2024-04-14 16:34 | P.PROBDLV ---
Vaginal Delivery Note - . Vaginal Delivery Note: 28-year-old G3, P2 at 39-0/7 weeks that presented for induction of labor. Patient was admitted and Pitocin induction of labor was begun. Amniotomy was performed and clear fluid was obtained. Patient progressed through labor eventually becoming uncomfortable and requesting epidural. Epidural was placed without difficulty by the anesthesia department. Patient made good progress toward complete dilation. Once completely dilated patient began pushing and had a normal spontaneous vaginal delivery of a viable female at 1612, weight of 8 pounds 10 ounces, Apgars of 9 and 9 at 1 and 5 minutes respectively. After 2-minute delay the umbilical cord was doubly clamped and cut and the placenta was delivered spontaneously intact with three-vessel cord being noted. Inspection the patient's vaginal vault a first-degree vaginal laceration along with a right labial laceration are appreciated. These were repaired in the usual fashion, vaginal laceration 3-0 Rapide, labial laceration 4-0 chromic. Uterus was noted to be firm below the umbilicus at this time. Bladder was drained for approximately 200 cc of clear yellow urine. Estimated blood loss 100 cc. Patient and tolerated delivery well, all counts noted be correct x 2 at the end of delivery.
[2024-04-14] MEDS: BENZOCAINE/MENTHOL SPRAY 1 GM/SPRAY AEROSOL TOPICAL PRN (16:42)
[2024-04-14] MEDS: IBUPROFEN 800 MG TAB PO SCH (17:08)
[2024-04-14] MEDS: ROPIVACAINE 225 MG, fentaNYL (PF). 450 MCG in SODIUM CHLORIDE 0.9% 171 ML EPIDURAL ONE (19:05)
[2024-04-14] MEDS: Rhogam IMMUNE GLOBULIN 1,500 UNIT/1 ML IM ONE (20:08)
[2024-04-14] MEDS: SENNOSIDES-DOCUSATE SODIUM 1 EACH TAB PO SCH (20:08)
[2024-04-14] MEDS: ACETAMINOPHEN TAB 500 MG TAB PO SCH (22:09)
[2024-04-15 06:10] LABS: Basophils % (A) 0 %; Eosinophils # (A) 0.1 k/uL (0-0.7); Eosinophils % (A) 1 %; HCT 32.8 % (34.0-46.0); HGB 10.7 gm/dL (11.4-16.0); Hypochromasia Slight; Lymphocytes # (A) 2.1 k/uL (1.0-4.8); Lymphocytes % (A) 18 %; MCHC 32.7 g/dL (31.0-37.0); MCV 91.8 fL (80.0-100.0); Mean Platelet Volume 9.1; Monocytes # (A) 0.6 k/uL (0-1.0); Monocytes % (A) 6 %; Neutrophils # (A) 8.6 k/uL (1.3-7.7); Neutrophils % (A) 75 %; Platelet Count 164 k/uL (150-450); RBC 3.58 m/uL (3.80-5.40); RDW 13.3 % (11.5-15.5); WBC 11.5 k/uL (3.8-10.6)
[2024-04-15 08:25] VITALS: BP 105/62; PULSE 98; RESP 16; TEMP 98.8
--- NOTE | 2024-04-15 08:46 | P.DS ---
Providers Date of admission: 04/14/24 06:05 Expected date of discharge: 04/15/24 Attending physician: Madison Peña Primary care physician: Stated None - Discharge Diagnosis(es) (1) Rh negative status during Current Visit: No Status: Acute (2) Term Current Visit: No Status: Acute (3) Normal spontaneous vaginal delivery Current Visit: No Status: Acute (4) Obstetric vaginal laceration with first degree perineal laceration Current Visit: No Status: Acute Hospital Course: This is a 28-year-old 3 now para 3-0-0-3 that presented to labor and delivery yesterday for scheduled induction of labor. Patient number receiving routine care which has been essentially uncomplicated. For full details in this patient please see the dictated history and physical. Patient was admitted to labor and delivery where Pitocin induction of labor was begun. Amniotomy was performed and clear fluid was obtained. Patient progressed through labor becoming uncomfortable and requesting epidural. Epidural was placed without difficulty by the anesthesia department. Patient made good progress toward complete dilation. Once completely dilated she began pushing and had a normal spontaneous vaginal delivery of a viable female infant at 1612, weight of 8 pounds 10 ounces, Apgars of 9 and 9 at 1 and 5 minutes respectively. Patient did sustain a first-degree laceration along with a right labial laceration during delivery. These were repaired in usual fashion. Hemostasis was noted after repair. On this day #1 patient is ambulating and voiding without difficulty. She is tolerating a regular diet without nausea or vomiting. She states her pain is well-controlled. She is breast-feeding without difficulty. She would like discharge home at 24 hours if is discharged along with mom Patient Condition at Discharge: Good Plan - Discharge Summary New Discharge Prescriptions: No Action Sertraline [Zoloft] 100 mg PO DAILY Pnv No.95/Ferrous Fum/Folic AC [ Multivitamin Tablet] 1 each PO DAILY Aspirin Discharge Medication List Sertraline [Zoloft] 100 mg PO DAILY 05/25/20 [History] Pnv No.95/Ferrous Fum/Folic AC [ Multivitamin Tablet] 1 each PO DAILY 06/18/20 [History] Aspirin 04/14/24 [History] Follow up Appointment(s)/Referral(s): Tremp,Madison S, DO [Doctor of Osteopathic Medicine] - 12/16/24 9:15 am Patient Instructions/Handouts: (DC), (GEN) Activity/Diet/Wound Care/Special Instructions: No intercourse, tub baths. No driving for two weeks. Call with any fever, s hakes or chills, with any pain not alleviated by over the counter meds, or with any questions or concerns. Follow-up in 6 weeks. [id number] ibuprofen and Tylenol for discomfort Discharge Disposition: HOME SELF-CARE
== END 2024-04-15 16:52 | disposition home or self-care (01) | DRG 807 ==
LOC: 4FBP 06:05
PROVIDERS: ADMIT Obstetrics & Gynecology Obstetrics; ATTEND Obstetrics & Gynecology Obstetrics
PROC: 10E0XZZ Delivery of Products of Conception, External Approach (ICD-10-PCS; principal; 2024-04-14)
PROC: 10907ZC Drainage of Amniotic Fluid, Therapeutic from Products of Conception, Via Natural or Artificial Opening (ICD-10-PCS; 2024-04-14)
PROC: 3E0234Z Introduction of Serum, Toxoid and Vaccine into Muscle, Percutaneous Approach (ICD-10-PCS; 2024-04-14)
PROC: 0UQGXZZ Repair Vagina, External Approach (ICD-10-PCS; 2024-04-14)
PROC: 3E033VJ Introduction of Other Hormone into Peripheral Vein, Percutaneous Approach (ICD-10-PCS; 2024-04-14)
DX: O71.4 Obstetric high vaginal laceration alone (principal); Z37.0 Single live birth; F32.A Depression, unspecified; F41.9 Anxiety disorder, unspecified; O26.893 Other specified pregnancy related conditions, third trimester; O99.344 Other mental disorders complicating childbirth; Z3A.39 39 weeks gestation of pregnancy; Z67.91 Unspecified blood type, Rh negative; Z79.899 Other long term (current) drug therapy; Z88.1 Allergy status to other antibiotic agents
CPT/HCPCS: 85025; 85461; 86850; 86900; 86901